=== PATIENT | female | born 1945 | race Hispanic/Latino ===

== ENCOUNTER 2017-08-30 08:55 | Day surgery (SDC) | payer MEDICARE, BC ==
[2017-08-25 08:45] VITALS: BMI 24.8
--- NOTE | 2017-08-30 08:17 | HP ---
REASON FOR ADMISSION: Left heart cath, possible angioplasty, abnormal stress test. BRIEF CLINICAL HISTORY: This is a 72-year-old female with past medical history significant for depression over 20 years, complaints of dyspnea on exertion, noninvasive workup shows abnormal stress test because of the chest pain, so the patient is scheduled for elective cardiac cath, possible angioplasty. PAST MEDICAL HISTORY: Significant for depression for many years, multiple anti-psych medications, complaining of chest pain off and on, the patient underwent a stress test that was abnormal, so the patient is scheduled for elective cardiac catheterization and possible angioplasty. CARDIAC WORKUP: As follows: Echocardiography 07/15/2017 that shows ejection fraction of 25% to 30%, trace aortic regurgitation, [id number] mitral regurgitation, trace tricuspid regurgitation, RV systolic pressure of 21. The patient underwent stress test dated 08/16/2017 that was a Lexiscan that shows abnormal myocardial perfusion study, partially reversible anteroseptal and apical defect suggestive of ischemia, ejection fraction of 44%. REVIEW OF SYSTEMS: Negative except HPI. PHYSICAL EXAMINATION: As follows; VITAL SIGNS: Height of the patient is 5 feet 2 inches, weight of the patient is 136 pounds, body mass index is 24.9 kg/m2. Blood pressure 140/80, heart rate is 68, respiratory rate 14, and temperature afebrile. HEENT: PERRLA. Extraocular muscles intact. NECK: Supple. No carotid bruit or thyromegaly. CHEST: Clear to auscultation. HEART: S1 and S2 regular. ABDOMEN: Soft. EXTREMITIES: Clubbing and cyanosis negative. LABORATORY DATA: Blood workup pending. IMPRESSION: Abnormal stress test shows ischemia, cardiomyopathy, possibly ischemic, ejection fraction by echo 25% to 30%, [id number] mitral regurgitation, trace tricuspid regurgitation, trace aortic regurgitation, ejection fraction of 25% to 30% dated 07/15/2017. A stress test shows anteroseptal reversible ischemia dated 08/16/2017 ejection fraction 44%, coronary artery disease, depression. RECOMMENDATION: We will load with 300 mg of Plavix and aspirin. Risks, benefits and alternatives were discussed with the patient. The patient agreed, and we will proceed with the cardiac catheterization. Further recommendation after the cardiac catheterization. We will review the blood workup when is available. Thank you Dr. Fontanez for providing us the opportunity in taking care of the patient, Ifeoma Couch. Amador Reyes MD cc: Dr. Fontanez [facility] # [id number]
[2017-08-30 09:43] LABS: BASO # 0.04 [, K/mm3] (0.0-2.0); BASO % 0.5 % (0.0-3.0); EOS # 0.2 (0.0-0.7); EOS % 2.7 % (1.5-5.0); GRAN # 6.44 (1.4-6.5); GRAN % 79.1 % (50.0-68.0); HEMOGLOBIN 12.3 g/dL (12.0-16.0); LYMPH # 1.2 (1.2-3.4); LYMPH % 14.3 % (22.0-35.0); MEAN CELL VOLUME 92.3 fl (80.0-105.0); MEAN CORPUSCULAR HEMOGLOBIN 29.6 pg (25.0-35.0); MEAN PLATELET VOLUME 9.6 fl (7.0-11.0); MONO # 0.3 (0.1-0.6); MONO % 3.4 % (1.0-6.0); RBC 4.16 [, 10^6/uL] (3.5-6.1); RED CELL DISTRIBUTION WIDTH 14.5 % (11.5-14.5); WHITE BLOOD COUNT 8.1 [, 10^3/ul] (4.5-11.0)
[2017-08-30 09:51] LABS: INR 0.91 (0.93-1.08); PARTIAL THROMBOPLASTIN TIME 35.3 Seconds (25.1-36.5); PROTHROMBIN TIME 10.5 SECONDS (9.4-12.5)
[2017-08-30 09:52] LABS: BLOOD UREA NITROGEN 21 mg/dL (7-21); CALCIUM 9.6 mg/dL (8.4-10.5)
[2017-08-30 09:53] LABS: GFR AFRICAN-AMERICAN > 60; GFR NON-AFRICAN AMERICAN > 60
[2017-08-30 09:57] LABS: LDL CHOLESTEROL 81 mg/dL (0-129)
[2017-08-30 10:00] LABS: HDL CHOLESTEROL 129 mg/dL (29-60)
[2017-08-30 10:01] VITALS: O2SAT 96
[2017-08-30] MEDS ORDERED: Lidocaine 2% Inj (20ml) ONE (10:24)
[2017-08-30] MEDS ORDERED: Iohexol 350 MG/100 ML VIAL ONE (10:24)
[2017-08-30] MEDS ORDERED: Phenylephrine 10 mg/ml Inj ONE (10:24)
[2017-08-30] MEDS ORDERED: Iohexol 350mgl/ml 50 ML ONE (10:24)
[2017-08-30] MEDS ORDERED: HEPARIN SODIUM/NS 2,000 ML IV ONE (10:25)
[2017-08-30] MEDS ORDERED: Nitroglycerin 50mg in D5W 50 MG/250 ML BOTTLE IV ONE (10:25)
[2017-08-30] MEDS ORDERED: Midazolam 2 MG/2 ML VIAL ONE (10:39)
[2017-08-30] MEDS ORDERED: Eptifibatide 20 mg/10mL Inj IVP ONE (11:21)
[2017-08-30] MEDS ORDERED: Sodium Chloride 0.9% 1,000 ML IV SCH (12:15)
[2017-08-30] MEDS ORDERED: Metoprolol Succinate 25 mg XL Tab PO SCH (12:30)
--- NOTE | 2017-08-30 16:20 | CARD ---
APPROVED REPORT EKG Measurement Heart [id number] <Conclusion> Normal sinus rhythm Left ventricular hypertrophy with repolarization abnormality Abnormal ECG
--- NOTE | 2017-08-30 16:34 | CARD ---
APPROVED REPORT EKG Measurement Heart [id number] <Conclusion> Normal sinus rhythm Nonspecific T wave abnormality Prolonged QT Abnormal ECG
[2017-08-30 17:06] LABS: BASO # 0.03 [, K/mm3] (0.0-2.0); BASO % 0.3 % (0.0-3.0); EOS # 0.1 (0.0-0.7); EOS % 0.5 % (1.5-5.0); GRAN # 8.71 (1.4-6.5); HEMOGLOBIN 13.4 g/dL (12.0-16.0); LYMPH # 1.3 (1.2-3.4); LYMPH % 11.8 % (22.0-35.0); MEAN CELL VOLUME 90.5 fl (80.0-105.0); MEAN CORPUSCULAR HEMOGLOBIN 29.7 pg (25.0-35.0); MEAN CORPUSCULAR HGB CONC 32.8 g/dl (31.0-37.0); MEAN PLATELET VOLUME 9.3 fl (7.0-11.0); MONO # 0.6 (0.1-0.6); MONO % 5.4 % (1.0-6.0); RBC 4.51 [, 10^6/uL] (3.5-6.1); RED CELL DISTRIBUTION WIDTH 14.6 % (11.5-14.5); WHITE BLOOD COUNT 10.6 [, 10^3/ul] (4.5-11.0)
[2017-08-30 17:23] LABS: BLOOD UREA NITROGEN 16 mg/dL (7-21); CALCIUM 9.7 mg/dL (8.4-10.5); GFR AFRICAN-AMERICAN > 60; GFR NON-AFRICAN AMERICAN > 60
[2017-08-30 17:50] VITALS: TEMP 98.1
--- NOTE | 2017-08-30 18:47 | CARD ---
APPROVED REPORT Procedure(s) performed: Left Heart Catheterization PTCA with Stenting of Proximal to Mid RCA with SALVADOR PTCA with Stenting of Mid Circumflex HISTORY The patient is a 72 year-old female with a history of : most recent EF: 44%. (EF Method: RADIONUCLIDE), chronic lung disease, tobacco history() : The patient is a current smoker . INDICATION The indication(s) include : positive stress test, chest pain, dyspnea. CASE TECHNIQUE The patient was brought electively to the Cardiac Catheterization Laboratory in a fasting state and was prepped and draped in a sterile manner. The left wrist was infiltrated with 2% Lidocaine subcutaneous anesthesia. A 6FR GLIDESHEATH ACCESS KIT sheath was inserted into the left radial artery without difficulty. Coronary angiography was performed using coronary diagnostic catheters. The left coronary system was accessed and visualized with a Diagnostic ,5 Fr JL 4 catheter. The right coronary system was accessed and visualized with a Diagnostic ,6 Fr JR 4 catheter. The left ventricle was accessed and visualized with a 5 Fr Pigtail 145 (Angled) catheter. Left ventricular/Aortic Valve gradient assessed on pullback. Left ventriculogram was performed in BEARDEN projection. Closure device was deployed with a Fr TR Band (Regular) without any complications. The patient tolerated the procedure well and there were no complications associated with the procedure. Vessel Analysis The patient's coronary anatomy is right dominant. The left main coronary artery is a large size vessel but very short or two separate ostium for LAD/ Cx. The left main bifurcates to the left anterior descending and circumflex. The left anterior descending artery is a medium size vessel with diffuse calcification noted throughout this vessel and without significant stenosis. The first diagonal branch is a medium size vessel with diffuse calcification noted throughout this vessel and without significant stenosis. The circumflex artery is a large size vessel with diffuse calcification noted throughout this vessel and with significant stenosis. There is a 80% stenosis in the mid segment. The first obtuse marginal branch is a large size vessel with diffuse calcification noted throughout this vessel and without significant stenosis. The second obtuse marginal branch is a medium size vessel with diffuse calcification noted throughout this vessel and without significant stenosis. The right coronary artery is a medium size vessel with diffuse calcification noted throughout this vessel and with significant stenosis. There is a 80% stenosis in the proximal to mid segment. The right posterior descending artery is a medium size vessel with diffuse calcification noted throughout this vessel and without significant stenosis. The right posterolateral branch is a medium size vessel with diffuse calcification noted throughout this vessel and without significant stenosis. Left Ventricle The left ventricle is borderline in size in size with mildly contractility. Ischemic cardiomyopathy. The left ventricular ejection fraction is estimated to be 45%. The left ventricular end diastolic pressure is 25 mmHg. There was no gradient across the aortic valve upon pullback. PCI Technique Lesion Anticoagulation was achieved with Heparin. Percutaneous coronary intervention was performed on the proximal to Mid right coronary artery. The lesion stenosis prior to intervention was 80% with CLAUDIO 2 flow. A 6 Fr JR 4 Guide Catheter was used to engage the ostium. A Luge 182 Interventional Guidewire was used to cross the lesion. BALLOON DILATION A Balloon catheter 2.0 x 12 mm Sprinter RX was inserted and inflated up to 8.00atm for 7seconds. STENT DEPLOYMENT A drug-eluting stent 3.0 x 18 mm Resolute SALVADOR was inserted and inflated up to 10.00atm for 13seconds. POST STENT DEPLOYMENT BALLOON DILATION A Balloon catheter 3.0 x 12 mm Sprinter NC was inserted and inflated up to 12.00atm for 15seconds. Final angiography reveals 0 % stenosis with CLAUDIO 3 flow. PCI Technique Lesion 2 Percutaneous Coronary Intervention was performed on the mid circumflex artery segment. The lesion stenosis prior to intervention was 80% with CLAUDIO 2 flow. A 6 Fr JL 4 Guide Catheter was used to engage the ostium. A Luge 182 Interventional Guidewire was used to cross the lesion. BALLOON DILATION A Balloon catheter 2.0 x 12 mm Sprinter RX was inserted and inflated up to 5.00atm for 10seconds. STENT DEPLOYMENT A drug-eluting stent 3.5 x 12 mm Resolute SALVADOR was inserted and inflated up to 14.00atm for 14seconds. POST STENT DEPLOYMENT BALLOON DILATION A Balloon catheter 3.5 x 8 mm Trek RX NC was inserted and inflated up to 15.00atm for 15seconds. Final angiography reveals 0 % stenosis with CLAUDIO 3 flow. Conclusion Two vessel CAD involving Proximal to Mid RCA and Mid Cx Mild Ischemic CMP, EF-45%, EDP-25 mmof Hg. Successful pTCA with SALVADOR of Proximal to Mid RCA and Mid CX Recommendations Smoking Cessation Cardiac Rehabilitation ReferralDaily ASA with Plavix for at least one year Aggressive Medical TherapyCardiac Risk Reduction Program Weight Loss Reduction Program CC; Dr. Sascha Fontanez/ Magnus Krause
[2017-08-30 19:08] VITALS: BP 156/81; PULSE 83; RESP 18
== END 2017-08-30 21:37 | disposition home or self-care (01) ==
LOC: CATH 08:55 → 2RSO 12:20 → CATH 21:37
PROVIDERS: ATTEND Internal Medicine Cardiovascular Disease
DX: I25.10 Atherosclerotic heart disease of native coronary artery without angina pectoris (principal); I25.5 Ischemic cardiomyopathy; F32.9 Major depressive disorder, single episode, unspecified
CPT/HCPCS: 36415; 80048; 80061; 85025; 85175; 85610; 85730; 86850; 86900; 93005; 93458; 99152; 99153; C1725 ×3; C1769 ×3; C1874 ×2; C1887 ×4; C9600; C9601; J0360; J1327; J1644 ×2; J1940; J2250; J3010; J7040 ×2; Q9967 ×3

== ENCOUNTER 2019-01-03 09:09 | Outpatient (CLI) | payer MEDICARE, BC | END 2019-01-03 09:10 | disposition home or self-care (01) | LOC: RAD 09:09 ==